=== PATIENT | male | born 1960 | race Caucasian/White ===

== ENCOUNTER 2018-02-24 08:03 | Day surgery (SDC) | payer OTHER ==
[~2018-02-24] VITALS: Ht 181.6 cm; Wt 115.2 kg
[~2018-02-24 08:03] MED LIST: ENDOCET 10-3251 EACH PO; LEXAPRO5 MG PO; LIPITOR20 MG PO; LISINOPRIL20 MG PO; METHOCARBAMOL750 MG PO; NEURONTIN600 MG PO; VOLTAREN75 MG PO; ZANAFLEX2 M1 PO; ZOFRAN4 MG PO
== END 2018-02-24 09:20 | disposition home or self-care (01) ==
LOC: PAIN 08:03
PROC: 3E0T3TZ Introduction of Destructive Agent into Peripheral Nerves and Plexi, Percutaneous Approach (ICD-10-PCS; principal; 2018-02-24)
DX: M47.816 Spondylosis without myelopathy or radiculopathy, lumbar region (principal); M51.36 Other intervertebral disc degeneration, lumbar region; M46.96 Unspecified inflammatory spondylopathy, lumbar region; M54.16 Radiculopathy, lumbar region; M19.90 Unspecified osteoarthritis, unspecified site; K76.0 Fatty (change of) liver, not elsewhere classified; I10 Essential (primary) hypertension; Z96.642 Presence of left artificial hip joint; Z88.8 Allergy status to other drugs, medicaments and biological substances
CPT/HCPCS: 93005; J1030; J2250; S0020

== ENCOUNTER 2018-03-03 06:47 | Day surgery (SDC) | payer OTHER ==
[~2018-03-03] VITALS: Ht 181.6 cm; Wt 115.0 kg
== END 2018-03-03 09:00 | disposition home or self-care (01) ==
LOC: PAIN 06:47 → SDC 07:30 → PAIN 07:30
DX: M47.816 Spondylosis without myelopathy or radiculopathy, lumbar region (principal); M51.36 Other intervertebral disc degeneration, lumbar region; M79.1 Myalgia; M19.90 Unspecified osteoarthritis, unspecified site; I10 Essential (primary) hypertension; F41.9 Anxiety disorder, unspecified; F32.9 Major depressive disorder, single episode, unspecified; F10.21 Alcohol dependence, in remission; Z96.642 Presence of left artificial hip joint; Z96.652 Presence of left artificial knee joint; K76.0 Fatty (change of) liver, not elsewhere classified; Z88.0 Allergy status to penicillin
CPT/HCPCS: J1030; J2250; S0020